=== PATIENT | female | born 1990 | race Caucasian/White ===

== ENCOUNTER 2021-05-03 09:03 | Emergency (ER) | payer OTHER ==
[~2021-05-03] VITALS: Ht 152.4 cm; Wt 58.4 kg
[2021-05-03 09:11] VITALS: BP 140/84
[2021-05-03] MEDS ORDERED: ketorolac trometh. 30mg/ml inj. IM ONE (10:10)
[2021-05-03] MEDS ORDERED: IBUP-1985 PO (10:15)
[2021-05-03] MEDS ORDERED: CYCL-1 PO (10:15)
== END 2021-05-03 10:25 | disposition home or self-care (01) ==
LOC: ER 09:04
DX: M54.41 Lumbago with sciatica, right side (principal); G89.29 Other chronic pain; Z79.2 Long term (current) use of antibiotics
CPT/HCPCS: 96372; 99283; J1885